=== PATIENT | female | born 1950 | race American Indian/Alaskan Native ===

== ENCOUNTER 2019-12-28 09:31 | Outpatient (CLI) | payer MEDICARE ==
--- NOTE | 2019-12-28 13:52 | Fluoroscopy Report ---
UPPER GI SERIES WITH AIR CONTRAST AND SMALL BOWEL FOLLOW-THROUGH HISTORY: Abdominal pain FINDINGS: Structural Engineering Technician film of the abdomen demonstrates an unremarkable bowel gas pattern. Cholecystectomy clips are n oted in the right upper quadrant. Deglutition was normal. No evidence for aspiration. The cervical and thoracic esophagus are normal ca liber and mucosal pattern throughout. No hiatal hernia or reflux was witnessed. The stomach is J-shaped. No mucosal defect or filling defect is identified. The duodenal bulb and duodenal sweep are unremarkable. Transit time through the small bowel loops is approximately 1 hour and 40 minutes. The duodenum, jeju num and ileum demonstrate normal mucosal pattern and caliber. No obstruction or mucosal lesion is destiney ntified. IMPRESSION: Unremarkable upper GI series and small bowel follow-through. Fluoroscopy time: 2.5 minutes. Fluoroscopic images: 21 Signer Name: Fede Maria Jr, MD Signed: 12/28/2019 1:48 PM Workstation Name: [id number]
== END 2019-12-28 09:32 | disposition home or self-care (01) ==
LOC: FLUORO 09:31
PROVIDERS: ATTEND Internal Medicine Gastroenterology
DX: R10.9 Unspecified abdominal pain (principal); Z90.49 Acquired absence of other specified parts of digestive tract
CPT/HCPCS: 74246; 74250